=== PATIENT | male | born 1970 | race Caucasian/White ===

== ENCOUNTER 2023-08-28 19:21 | Emergency (ER) | payer BC, SELFPAY ==
[2023-08-28 19:24] VITALS: BP 141/84
--- NOTE | 2023-08-28 20:54 | ED.GENMED ---
History of Present Illness
General
Chief Complaint: Male Genito-Urinary Symptoms
Time Seen by Provider: 08/28/23 19:47
Travel History
Have you had any contact with someone who has COVID-19?: No
Do you have any symptoms of coronavirus? Fever > 100 degrees, chills, cough, shortness of breath, sore throat, loss of taste or smell, muscle aches, or headache?: No
History of Present Illness
History of Present Illness:
53-year-old male presents for evaluation of vague genitourinary discomfort ongoing for the past week. He reports random intermittent pain to the penile shaft, bilateral scrotum, perineal region, as well as the rectal region. No obvious provoking
or palliating factors. He denies any dysuria or urinary frequency. Does note gradual worsening of nocturia and urinary dribbling that he states has been ongoing for some time. Notes that he was diagnosed with pelvic floor dysfunction
approximately 9 years ago and underwent rehab which he feels improved the symptoms. Denies any concern for sexually transmitted infection. No lower abdominal pain or fevers.
Review of Systems
Review of Systems
Allergies reviewed?: Yes
All Other Systems: ROS reviewed and negative except as documented in HPI and ROS
Phy Exam
Physical Exam
Physical Exam:
GEN: Well appearing, NAD, WDWN
HEENT: Oral mucosa moist, no scleral icterus
Cardiac: Regular rate
Lung: No respiratory distress, no tachypnea
: Circumcised, no penile swelling or erythema. No penile discharge. Scrotal exam is unremarkable with no palpable epididymitis, no epididymal tenderness, and no palpable inguinal adenopathy or hernias bilaterally. No perineal discomfort or
crepitus
MSK: No gross deformity or injuries
Skin: Good color, no pallor or jaundice, no rashes
Neuro: AO x3, moves all extremities freely
Psych: Calm, cooperative
Course
Orders/Labs/Results
Orders:
Orders
08/28/23 20:49
Bladder Scan- Treatment ONCE
Comment: POST VOID RESIDUAL
08/28/23 21:02
Urinalysis Reflex To Culture Urgent
Date Specimen was Collected: 08/28/23
Time Specimen was Collected: 20:57
Vital Signs
Initial and Last Documented VS:
Initial Vital Signs
Temp Pulse Resp BP Pulse Ox
98.1 F 67 20 141/84 99
08/28/23 19:24 08/28/23 19:24 08/28/23 19:24 08/28/23 19:24 08/28/23 19:24
Last Documented Vital Signs
Temp Pulse Resp BP Pulse Ox
98.1 F 67 20 141/84 99
08/28/23 19:24 08/28/23 19:24 08/28/23 19:24 08/28/23 19:24 08/28/23 19:24
MDM/Problems Addressed
MDM/Problems Addressed:
Exam is grossly benign. Urinalysis negative. He does have a small volume of postvoid urine noted on bladder scan, he does have some symptoms of BPH with retention however I would not expect this to be causing his pain. Recommend primary care
follow-up regarding the pain, will start him on tamsulosin empirically
*Critical Care Note
Total Time (30-74mins, 75-104mins- exclusive of procedures): Not Applicable
ED Attending Note
-
Portions of this chart may have been created with voice recognition software.� Occasional wrong word or��sound alike� substitutions may have occurred due to the inherent limitations of voice recognition software.
Discharge Plan
Departure
Patient Disposition: Home (Routine Discharge)
Date of Disposition: 08/28/23
Time of Disposition: 21:14
Patient with high blood pressure during this ER visit?: No
Discharge Problem:
Benign prostatic hyperplasia
Instructions: Benign Prostatic Hyperplasia (Enlarged Prostate) (DC)
Prescriptions:
New
tamsulosin [Flomax] 0.4 mg capsule
0.4 mg PO HS Qty: 30 0RF
Referrals:
NONE,* [Family Provider] -
Interventions
Interventions:
*Risk Screen - Suicide Last Done: 08/28/23 19:24
*General Assessment Last Done: 08/28/23 19:24
*Neglect/Abuse Screening Last Done: 08/28/23 19:24
*Nursing Disposition Last Done: 08/28/23 21:27
ED-Male Genitourinary Assessment Last Done: 08/28/23 21:05
Discharge Date and Time
Discharge Date/Time: 08/28/23 21:27
Print Language: GIBRALTARIAN
[2023-08-28 21:09] LABS: Urine Albumin Negative (Neg - Trace); Urine Bilirubin Negative (Negative); Urine Character Clear (Clear); Urine Color Yellow; Urine Glucose Negative (Negative); Urine Ketone Negative (Negative); Urine Leukocyte Negative (Negative); Urine Nitrite Negative (Negative); Urine Occult Blood Negative (Negative); Urine Specific Gravity 1.025 (<1.030); Urine Urobilinogen Negative (Neg - 1+)
== END 2023-08-28 21:27 | disposition home or self-care (01) ==
LOC: EMR 19:21
PROVIDERS: Physician Assistant; EMERGENCY PHYSICIAN Emergency Medicine
DX: N40.1 Benign prostatic hyperplasia with lower urinary tract symptoms (principal); R35.1 Nocturia
CPT/HCPCS: 99283; 51798; 81003

== ENCOUNTER → 2024-10-22 07:12 | Outpatient (REF) | payer BC, SELFPAY | LOC: RAD 07:12 | PROVIDERS: ATTENDING PHYSICIAN Physician Assistant Medical | DX: R14.0 Abdominal distension (gaseous) (principal); R11.0 Nausea | CPT/HCPCS: 76700 ==